=== PATIENT | male | born 1945 | race Caucasian/White ===

== ENCOUNTER 2020-06-06 08:30 | Day surgery (SDC) | payer MEDICARE ==
[~2020-06-06] VITALS: Ht 170.2 cm; Wt 92.0 kg
[~2020-06-06 08:30] MED LIST: ASPI325 PO; ASPI81CH; ASPI81CH PO; CLOP75 PO; FISH1000 PO; GLIP10 PO; IBUP800 PO; INSULANPEN SC; Inderal40 MG PO; LISI20; LISI5 PO; LIVALO2 MG PO; LOVA40; METF500 PO; MULVITMIND PO; TICA90TA PO; UBID100 PO
[2020-06-06] MEDS ORDERED: BASAGLAR K100 UNIT/1 SC (09:16)
[2020-06-06] MEDS ORDERED: VITAMIN D31000 UNI1 PO (09:22)
--- NOTE | 2020-06-06 16:54 | NUR ---
DISCHAGE PT REMAINED A&OX3 AND DENIED ANY PAIN DURING RECOVRY. R GROIN SITE REMAINS CDI-NO HEMATOMA NOTED. DR. HERNÁNDEZ IN TO SPEAK WITH PT ABOUT RESULTS. IC DC'D WITH MANINDER IN TACT. PT UP TO RESTROOM WITH EASE. DISCHARGE PAPERWORK GONE OVER WITH PT. PT VERBALLY STATED THE UNDERSTANDING OF THE DISCHARGE EDUCATION AND DENIED ANY QUESTIONS AT THIS TIME. PT WHEELED OUT BY THIS NURSE.
[2020-07-05] MEDS ORDERED: INSULANI (16:21)
== END 2020-06-06 23:07 | disposition home or self-care (01) ==
LOC: MHTC 08:30
DX: E11.51 Type 2 diabetes mellitus with diabetic peripheral angiopathy without gangrene (principal); I70.213 Atherosclerosis of native arteries of extremities with intermittent claudication, bilateral legs; I25.10 Atherosclerotic heart disease of native coronary artery without angina pectoris; I10 Essential (primary) hypertension; E78.5 Hyperlipidemia, unspecified; Z79.4 Long term (current) use of insulin; Z87.891 Personal history of nicotine dependence; Z95.5 Presence of coronary angioplasty implant and graft; Z79.82 Long term (current) use of aspirin
CPT/HCPCS: 37228; 37232; 75625; 75716; 75774; 76937; 82947; 85347; 93005; 93010; 99152; 99153; C1725; C1757; C1760; C1769; C1884; C1887; C1894; C2623; C9766; C9772; J1644; J2250; J3010; J7030; J7050; Q9967

== ENCOUNTER 2020-07-06 07:58 | Day surgery (SDC) | payer MEDICARE ==
[~2020-07-06] VITALS: Ht 170.2 cm; Wt 92.0 kg
[~2020-07-06 07:58] MED LIST changes: +BASAGLAR K100 UNIT/1 SC; +INSULANI; +VITAMIN D31000 UNI1 PO
--- NOTE | 2020-07-06 13:35 | NUR ---
PT BACK TO RECOVERY ROOM VIA BED AFTER PROCEDURE. DENIES ANY PAIN OR DISCOMFORT. LEFT FEMORAL SITE WITH BERTIN PATCH AND TEGADERM IN PLACE. NO BLEEDING OR SWELLING NOTED. PT GIVEN PO FLUIDS PER REQUEST.
--- NOTE | 2020-07-06 13:45 | NUR ---
IV DC'D, CATH INTACT. PT HAS VERBALIZED UNDERSTANDING OF DC INSTRUCTIONS AND FOLLOW UP INFO. LEFT FEMORAL SITE REMAINS SOFT AND NON-TENDER AT TIME OF DISCHARGE. NO BLEEDING OR SWELLING AFTER SHORT DISTANCE AMBULATING. OUT TO CAR VIA WHEELCHAIR.
--- NOTE | 2020-07-06 14:45 | NUR ---
PT ASSISTED TO REPOSITION ONTO SIDE IN BED FOR COMFORT. DENIES OTHER NEEDS. LEFT FEMORAL SITE REMAINS SOFT WITH NO BLEEDING OR SWELLING. VSS. CALL LIGHT IN REACH.
[2020-07-06] MEDS ORDERED: CLOP75 PO (15:08)
[2020-07-06] MEDS ORDERED: XARELTO2.5 M1 PO (15:08)
== END 2020-07-06 16:43 | disposition home or self-care (01) ==
LOC: MHTC 07:58
DX: I70.213 Atherosclerosis of native arteries of extremities with intermittent claudication, bilateral legs (principal); E11.69 Type 2 diabetes mellitus with other specified complication; I10 Essential (primary) hypertension; I25.10 Atherosclerotic heart disease of native coronary artery without angina pectoris; E78.5 Hyperlipidemia, unspecified; Z87.891 Personal history of nicotine dependence; Z79.82 Long term (current) use of aspirin; Z79.4 Long term (current) use of insulin; Z79.899 Other long term (current) drug therapy
CPT/HCPCS: 37228; 75716; 75774; 76937; 85347; 99152; 99153; C1714; C1725; C1757; C1769; C1884; C1887; C1894; C2623; C9766; J1644; J2250; J3010; J7030; J7050; Q9967

== ENCOUNTER 2020-07-10 14:15 | Emergency (ER) | payer MEDICARE ==
[~2020-07-10] VITALS: Ht 170.2 cm; Wt 102.1 kg
[~2020-07-10 14:15] MED LIST changes: +XARELTO2.5 M1 PO
[2020-07-10 15:04] LABS: BASOPHILS ABSOLUTE AUTO 0.08 K/mm3 (0.00-0.23); BASOPHILS PERCENT AUTO 1 % (0-2); EOSINOPHILS ABSOLUTE AUTO 0.63 K/mm3 (0.00-0.68); EOSINOPHILS PERCENT AUTO 6 % (0-6); Hematocrit 46.6 % (37.0-53.0); Hemoglobin 15.6 g/dL (13.5-17.5); IMMATURE GRAN ABSOLUTE AUTO 0.13 K/mm3 (0.00-0.10); IMMATURE GRAN PERCENT AUTO 1 % (0-1); LYMPHOCYTES ABSOLUTE AUTO 3.32 K/mm3 (0.84-5.20); LYMPHOCYTES PERCENT AUTO 30 % (21-46); MONOCYTES ABSOLUTE AUTO 1.03 K/mm3 (0.16-1.47); MONOCYTES PERCENT AUTO 9 % (4-13); Mean Corpuscular HGB 31.1 pg (26.0-34.0); Mean Corpuscular HGB Conc 33.5 g/dL (31.5-36.5); Mean Corpuscular Volume 93 fL (80-100); Mean Platelet Volume 10.2 fL (9.1-12.4); NEUTROPHILS ABSOLUTE AUTO 5.79 K/mm3 (1.96-9.15); NEUTROPHILS PERCENT AUTO 53 % (41-73); Platelet Count 215 K/mm3 (150-400); RDW Standard Deviation 47.8 fL (35.1-46.3); Red Blood Cell Count 5.01 M/mm3 (4.30-5.90); White Blood Cell Count 10.98 K/mm3 (4.00-11.30)
[2020-07-10 15:26] LABS: Alanine Aminotransfer (ALT/SGP 32 U/L (12-78); Albumin, Blood 3.8 g/dL (3.4-5.0); Albumin/Globulin Ratio 0.8 (0.8-1.8); Alk Phos 87 U/L (50-136); Anion Gap 7 mmol/L (6-16); Aspartate Aminotrans (AST/SGOT 20 U/L (12-37); Bilirubin, Total 0.5 mg/dL (0.1-1.0); Blood Urea Nitrogen 35 mg/dL (8-24); Bun/Creatinine Ratio 27.3 (12.0-20.0); CO2, Blood 19 mmol/L (21-32); Calcium, Blood 9.3 mg/dL (8.5-10.1); Chloride, Blood 109 mmol/L (98-108); Creatinine, Blood 1.28 mg/dL (0.60-1.20); Globulin, Blood 4.7 g/dL (2.2-4.0); Glomerular Filtration Rate 58 (60-); Glucose, Blood 122 mg/dL (70-99); Potassium, Blood 4.3 mmol/L (3.5-5.5); Sodium, Blood 135 mmol/L (136-145); Total Protein, Blood 8.5 g/dL (6.4-8.2); Troponin I <0.015 ng/mL (0.000-0.040)
== END 2020-07-10 16:30 | disposition home or self-care (01) ==
LOC: ER 14:15
PROVIDERS: Physician Assistant
DX: R07.9 Chest pain, unspecified (principal); R06.02 Shortness of breath; R11.0 Nausea; R53.1 Weakness; I10 Essential (primary) hypertension; E11.51 Type 2 diabetes mellitus with diabetic peripheral angiopathy without gangrene; I25.2 Old myocardial infarction; Z88.7 Allergy status to serum and vaccine; Z79.4 Long term (current) use of insulin; Z79.899 Other long term (current) drug therapy; Z79.02 Long term (current) use of antithrombotics/antiplatelets; Z79.01 Long term (current) use of anticoagulants; Z87.891 Personal history of nicotine dependence
CPT/HCPCS: 36415; 71045; 80053; 84484; 85025; 93005; 93010; 99285-25

== ENCOUNTER 2020-07-26 06:03 | Day surgery (SDC) | payer MEDICARE ==
[~2020-07-26] VITALS: Ht 170.2 cm; Wt 92.0 kg
[2020-07-26] MEDS ORDERED: GLIP2.5ER PO (06:38)
--- NOTE | 2020-07-26 10:14 | NUR ---
PATIENT IS S/P PERIPHERAL ANGIOGRAM AND INTERVENTION. RFA MYNX CLOSURE, SOFT, NO BLEEDING, TENDER TO TOUCH. PULSES ARE LEFT DP DOPPLER, LEFT PT ABSENT. RIGHTDP 1+, RIGHT PT DOPPLER. NO PAIN NOTED. PLACED ON BISI MONITOR, HOB FLAT SIDE RAILS UP X 2. CALL LIGHT IN REACH. SBAR RECEIVED FROM AMARA KNIGHT RN
--- NOTE | 2020-07-26 11:48 | NUR ---
PATIENT SITTING UP IN THE BED. LUNCH SERVED AND PATIENT FEEDING SELF. RIGHT GROIN STABLE. VVS. NO PAIN NOTED.
--- NOTE | 2020-07-26 12:12 | NUR ---
PATIENT UP TO THE RESTRROM. GAIT STEADY, NOTED TO HAVE TREMORS IN UPPER EXTREMITIES, PATIENT STATES THAT THE TREMORS ARE NOT NEW. RIGHT GROIN UNCHANGED. BACK TO BED AND CONTACTING RIDE HOME FOR A PENDING [id number] DISHCARGE.
--- NOTE | 2020-07-26 12:41 | NUR ---
PIV REMOVED FROM BISI LEFT FOREARMA DN PRESSURE DRESSING APPLIED. PATIENT DRESSED AND TO THE RESTRROM AGAIN TO VOID. ALL BELONGINGS GATHERED AND REVIEWED DISCAHRGE INSTRUCTIONS WITH THE PATIENT, WITH A FOLLOW UP PENDING WITHIN FOUR WEEKS. PATIENT CALLED RIDE AND WILL BE HERE SHORTLY.
--- NOTE | 2020-07-26 12:47 | NUR ---
PATIENT DISCAHRGED HOME WITH FRIEND DRIVING. ALL BELONINGS RETAINED AND DISCHARGE INSTRUCTIONS IN HAND. DISCHARGED VIA WHEELCHAIR.
== END 2020-07-26 12:45 | disposition home or self-care (01) ==
LOC: MHTC 06:03
DX: E11.51 Type 2 diabetes mellitus with diabetic peripheral angiopathy without gangrene (principal); I70.223 Atherosclerosis of native arteries of extremities with rest pain, bilateral legs; I10 Essential (primary) hypertension
CPT/HCPCS: 37227; 75625; 75716; 75774; 76937; 82947; 85347; 99152; 99153; C1714; C1724; C1725; C1769; C1874; C1884; C1887; C1894; C2623; J1644; J2250; J3010; J7030; J7050; Q9967

== ENCOUNTER 2021-08-09 08:22 | Day surgery (SDC) | payer MEDICARE ==
[~2021-08-09] VITALS: Ht 170.2 cm; Wt 90.0 kg
[~2021-08-09 08:22] MED LIST changes: +GLIP2.5ER PO
[2021-08-09] MEDS ORDERED: GABA300 PO (08:43)
[2021-08-09] MEDS ORDERED: VITAMIN B-1250 MG PO (08:43)
--- NOTE | 2021-08-09 09:22 | NUR ---
DEXCOM READING WAS 99 AND PATIENT WANTED TO TAKE ORANGE JUICE. DUE TO NPO STATUS WAS UNABLE TO TAKE ORAL INTAKE. ORDER OBTAINED FROM DR. HERNÁNDEZ TO GIVE D5W 250 ML IV AND RECHECK GLUCOSE. THIS WAS DONE AND DEXCOM READING WAS 155.
--- NOTE | 2021-08-09 12:03 | NUR ---
PATIENT RETURNED FROM THE CATHLAB AND SBAR RECEIVED FROM KEEGAN ENGLISH. PATIENT PLACED ON THE MONITOR AND VVS. NO PAIN NOTED. MYNX TO THE RIGHT GROIN. DRESSING CDI, NO HEMATOMA, NO BLEEDING. PULSES ALL DOPPLER + NOTED MARKIE DP/PT. TRAY SET UP AND PAIIENT FEEDING SELF. CALL LIGHT IN REACH.
--- NOTE | 2021-08-09 12:08 | NUR ---
PATIENT CONTINUES TO MONITOR DEXCOM AND IS DRINKING AND EATING TO SUPPORT GLUCOSE.
[2021-08-09] MEDS ORDERED: XARELTO20 MG PO (12:38)
--- NOTE | 2021-08-09 13:00 | NUR ---
[facility] SCRIPT FAXED TO [facility] FAX CONFIRMATION PLACED ON THE CHART.
--- NOTE | 2021-08-09 13:01 | NUR ---
PATINET RESTING QUIETLY AND RIGHT GROIN SITE STABLE.
--- NOTE | 2021-08-09 13:30 | NUR ---
PATEINT UP OOB TO THE RESTRROM. PIV REMOVED. PAITENT CALLING HIS RIDE TO MET HIS FOR DISCHARGE. PIV REMOVED, CATH TIP INTACT, PRESSURE DRESSING APPLIED. RIGHT GROIN DRESISNG CDI, NO HEMATOMA. NO BLEEDING.
--- NOTE | 2021-08-09 13:43 | NUR ---
DISCHARGED HOME VIA WHEELCHAIR WITH ULTRASONIC SEAMING MACHINE OPERATOR AFTER REVIEWING DISCAHRGE INSTUCTIONS.
== END 2021-08-09 14:03 | disposition home or self-care (01) ==
LOC: MHTC 08:22
DX: E11.51 Type 2 diabetes mellitus with diabetic peripheral angiopathy without gangrene (principal); I70.213 Atherosclerosis of native arteries of extremities with intermittent claudication, bilateral legs; I10 Essential (primary) hypertension; E78.5 Hyperlipidemia, unspecified; I25.10 Atherosclerotic heart disease of native coronary artery without angina pectoris; Z87.891 Personal history of nicotine dependence; Z88.7 Allergy status to serum and vaccine; Z79.82 Long term (current) use of aspirin; Z79.4 Long term (current) use of insulin; Z79.899 Other long term (current) drug therapy
CPT/HCPCS: 76937; 85347; 99152; 99153; C1714; C1725; C1760; C1769; C1874; C1887; C1894; C2623; J1644; J2250; J3010; J7030; J7040; J7060; Q9967

== ENCOUNTER → 2021-11-19 | Outpatient (CLI) | payer MEDICARE ==
[~2021-11-19] MED LIST changes: +GABA300 PO; +VITAMIN B-1250 MG PO; +XARELTO20 MG PO
== END | disposition home or self-care (01) ==
LOC: LAB 12:30 → LAB SHORT 12:30
DX: E11.51 Type 2 diabetes mellitus with diabetic peripheral angiopathy without gangrene (principal)
CPT/HCPCS: 82043

== ENCOUNTER → 2023-01-13 | Outpatient (CLI) | payer MEDICARE | END | disposition home or self-care (01) | LOC: LAB SHORT 11:44 → LAB 11:44 | DX: D75.89 Other specified diseases of blood and blood-forming organs (principal); Z79.899 Other long term (current) drug therapy | CPT/HCPCS: 82607; 82746 ==

== ENCOUNTER → 2023-04-17 | Outpatient (CLI) | payer MEDICARE ==
[2023-04-17 13:08] LABS: BASOPHILS ABSOLUTE AUTO 0.07 K/mm3 (0.00-0.23); BASOPHILS PERCENT AUTO 1 % (0-2); EOSINOPHILS PERCENT AUTO 5 % (0-6); Hematocrit 51.6 % (37.0-53.0); Hemoglobin 17.3 g/dL (13.5-17.5); IMMATURE GRAN ABSOLUTE AUTO 0.07 K/mm3 (0.00-0.10); IMMATURE GRAN PERCENT AUTO 1 % (0-1); LYMPHOCYTES ABSOLUTE AUTO 2.57 K/mm3 (0.84-5.20); LYMPHOCYTES PERCENT AUTO 27 % (21-46); MONOCYTES PERCENT AUTO 10 % (4-13); Mean Corpuscular HGB 31.3 pg (26.0-34.0); Mean Corpuscular HGB Conc 33.5 g/dL (31.5-36.5); Mean Corpuscular Volume 94 fL (80-100); NEUTROPHILS PERCENT AUTO 57 % (41-73); RDW Coefficient Variation 14.6 % (11.7-14.2); RDW Standard Deviation 50.9 fL (35.1-46.3); Red Blood Cell Count 5.52 M/mm3 (4.30-5.90); White Blood Cell Count 9.51 K/mm3 (4.00-11.30)
[2023-04-17 13:25] LABS: Albumin, Blood 3.7 g/dL (3.4-5.0); Albumin/Globulin Ratio 0.9 (0.8-1.8); Bilirubin, Total 0.5 mg/dL (0.1-1.0); Bun/Creatinine Ratio 21.1 (12.0-20.0); Calcium, Blood 10.6 mg/dL (8.5-10.1); Creatinine, Blood 1.47 mg/dL (0.60-1.20); Globulin, Blood 4.3 g/dL (2.2-4.0); Potassium, Blood 4.5 mmol/L (3.5-5.5)
[2023-04-17 14:02] LABS: Creatinine, Urine Random 44.7 mg/dL (27.00-270.00)
[2023-04-17 14:29] LABS: Microalb/Creat Ratio UR, Rand 1532.44 mg/g (0.000-30.000)
== END | disposition home or self-care (01) ==
LOC: LAB SHORT 12:12
PROVIDERS: Nurse Practitioner Family
DX: E11.8 Type 2 diabetes mellitus with unspecified complications (principal)
CPT/HCPCS: 80053; 82043; 82570; 83036; 85025

== ENCOUNTER 2024-07-18 07:03 | Emergency (ER) | payer MEDICARE ==
[~2024-07-18] VITALS: Ht 170.2 cm; Wt 81.7 kg
[2024-07-18 08:00] LABS: BASOPHILS ABSOLUTE AUTO 0.08 K/mm3 (0.00-0.23); BASOPHILS PERCENT AUTO 1 % (0-2); EOSINOPHILS ABSOLUTE AUTO 0.59 K/mm3 (0.00-0.68); EOSINOPHILS PERCENT AUTO 5 % (0-6); Hematocrit 50.8 % (37.0-53.0); Hemoglobin 17.5 g/dL (13.5-17.5); IMMATURE GRAN ABSOLUTE AUTO 0.07 K/mm3 (0.00-0.10); IMMATURE GRAN PERCENT AUTO 1 % (0-1); LYMPHOCYTES ABSOLUTE AUTO 2.66 K/mm3 (0.84-5.20); LYMPHOCYTES PERCENT AUTO 23 % (21-46); MONOCYTES ABSOLUTE AUTO 1.05 K/mm3 (0.16-1.47); MONOCYTES PERCENT AUTO 9 % (4-13); Mean Corpuscular HGB Conc 34.4 g/dL (31.5-36.5); Mean Corpuscular Volume 93 fL (80-100); NEUTROPHILS ABSOLUTE AUTO 7.37 K/mm3 (1.96-9.15); NEUTROPHILS PERCENT AUTO 62 % (41-73); Platelet Count 194 K/mm3 (150-400); RDW Coefficient Variation 13.9 % (11.7-14.2); RDW Standard Deviation 47.7 fL (35.1-46.3); Red Blood Cell Count 5.47 M/mm3 (4.30-5.90); White Blood Cell Count 11.82 K/mm3 (4.00-11.30)
[2024-07-18 08:21] LABS: Albumin/Globulin Ratio 0.9 (0.8-1.8); Bilirubin, Total 0.8 mg/dL (0.1-1.0); Bun/Creatinine Ratio 15.6 (12.0-20.0); Calcium, Blood 9.7 mg/dL (8.5-10.1); Creatinine, Blood 1.35 mg/dL (0.60-1.20); Globulin, Blood 4.3 g/dL (2.2-4.0); Potassium, Blood 4.5 mmol/L (3.5-5.5); Total Protein, Blood 8.3 g/dL (6.4-8.2)
[2024-07-18 09:10] LABS: Cholesterol 158 mg/dL (50-200); Triglycerides 218 mg/dL (30-160)
[2024-07-18] MEDS ORDERED: LOSA25 PO (10:31)
[2024-07-18] MEDS ORDERED: HYDROCODONE-AC1 EA10 PO (10:31)
[2024-07-18] MEDS ORDERED: ONDA4ODT MM (10:31)
[2024-07-18 11:15] VITALS: BP 128/72
== END 2024-07-18 11:25 | disposition home or self-care (01) ==
LOC: ER 07:03
PROVIDERS: Emergency Medicine
DX: K85.90 Acute pancreatitis without necrosis or infection, unspecified (principal); I11.0 Hypertensive heart disease with heart failure; I50.20 Unspecified systolic (congestive) heart failure; E11.51 Type 2 diabetes mellitus with diabetic peripheral angiopathy without gangrene; E78.5 Hyperlipidemia, unspecified; Z79.4 Long term (current) use of insulin; Z79.84 Long term (current) use of oral hypoglycemic drugs; Z79.82 Long term (current) use of aspirin; Z79.899 Other long term (current) drug therapy
CPT/HCPCS: 74177; 80053; 82465; 83690; 84478; 84484; 85025; 87077; 87086; 87186; 93005; 93010; 99284-25; Q9967

== ENCOUNTER → 2024-07-20 | Outpatient (CLI) | payer MEDICARE ==
[~2024-07-20] MED LIST changes: +HYDROCODONE-AC1 EA10 PO; +LOSA25 PO; +ONDA4ODT MM
[2024-07-20 20:59] LABS: Protein, Urine Quantitative 124.1 mg/dL (0.0-11.9)
== END ==
LOC: LAB SHORT 09:30 → LAB 09:30
PROVIDERS: Internal Medicine Nephrology
DX: N18.30 Chronic kidney disease, stage 3 unspecified (principal); D63.1 Anemia in chronic kidney disease; N25.81 Secondary hyperparathyroidism of renal origin; E55.9 Vitamin D deficiency, unspecified; E78.00 Pure hypercholesterolemia, unspecified; R76.9 Abnormal immunological finding in serum, unspecified; R94.5 Abnormal results of liver function studies; R94.6 Abnormal results of thyroid function studies
CPT/HCPCS: 81050; 82043; 82570; 84156

== ENCOUNTER → 2024-12-30 | Outpatient (CLI) | payer MEDICARE ==
[2024-12-30 18:41] LABS: BASOPHILS ABSOLUTE AUTO 0.09 K/mm3 (0.00-0.23); BASOPHILS PERCENT AUTO 1 % (0-2); EOSINOPHILS ABSOLUTE AUTO 0.42 K/mm3 (0.00-0.68); EOSINOPHILS PERCENT AUTO 5 % (0-6); Hematocrit 51.1 % (37.0-53.0); Hemoglobin 17.3 g/dL (13.5-17.5); IMMATURE GRAN ABSOLUTE AUTO 0.05 K/mm3 (0.00-0.10); IMMATURE GRAN PERCENT AUTO 1 % (0-1); LYMPHOCYTES ABSOLUTE AUTO 3.20 K/mm3 (0.84-5.20); LYMPHOCYTES PERCENT AUTO 34 % (21-46); MONOCYTES ABSOLUTE AUTO 0.92 K/mm3 (0.16-1.47); MONOCYTES PERCENT AUTO 10 % (4-13); Mean Corpuscular HGB Conc 33.9 g/dL (31.5-36.5); Mean Corpuscular Volume 95 fL (80-100); NEUTROPHILS ABSOLUTE AUTO 4.75 K/mm3 (1.96-9.15); NEUTROPHILS PERCENT AUTO 50 % (41-73); NRBC ABSOLUTE 0.00 K/mm3 (0.00-0.02); NRBC Auto 0.0 /100 WBC (0.0-0.2); RDW Coefficient Variation 13.6 % (11.7-14.2); RDW Standard Deviation 48.1 fL (35.1-46.3)
[2024-12-30 19:15] LABS: CHOL/HDL RATIO 4.3; Cholesterol 155 mg/dL (50-200); HDL Cholesterol 36 mg/dL (>39); LDL/HDL RATIO 2.4; Low Density Lipoprotein Chol 85 mg/dL (0-110); PSA, %Free 37.7 %; PSA, Free 1.140 ng/mL; Prostate Specific Antigen 3.020 ng/mL (0.000-4.000); Triglycerides 171 mg/dL (30-160); Very Low Density Lipoprot Chol 34 mg/dL (6-32)
== END ==
LOC: LAB SHORT 15:43 → LAB 15:43
PROVIDERS: Nurse Practitioner Family
DX: E11.40 Type 2 diabetes mellitus with diabetic neuropathy, unspecified (principal); E78.2 Mixed hyperlipidemia; N40.1 Benign prostatic hyperplasia with lower urinary tract symptoms; R35.0 Frequency of micturition
CPT/HCPCS: 80061; 83036; 84153; 84154; 85025; 87077; 87086; 87186